=== PATIENT | male | born 1965 | race Two or more races ===

== ENCOUNTER 2020-01-15 17:50 | Emergency (ER) | payer MEDICAID ==
[~2020-01-15] VITALS: Ht 175.3 cm; Wt 90.7 kg
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
--- NOTE | 2020-01-15 18:00 | NUR ---
SEEN AND EXAMINED BY .
--- NOTE | 2020-01-15 20:50 | NUR ---
Patient is resting comfortably in bed. Easily aroused. VSS.
--- NOTE | 2020-01-15 21:19 | NUR ---
Patient is resting comfortably in bed with eyes closed. Easily aroused. VSS
--- NOTE | 2020-01-16 00:24 | NUR ---
PT PROVIDED WITH WATER AND BLANETS.
--- NOTE | 2020-01-16 02:40 | NUR ---
[employer] AT BEDSIDE. STATED PT WAS MISSING.
--- NOTE | 2020-01-16 02:41 | NUR ---
Patient discharged to home in stable condition. Written and verbal after care instructions given. Patient verbalizes understanding of instruction. Pt ambulated with steady gait. Homeless waiver signed.
[2020-01-16 02:42] VITALS: BP 118/75
== END 2020-01-16 02:42 | disposition home or self-care (01) ==
LOC: ER 17:57
DX: F10.129 Alcohol abuse with intoxication, unspecified (principal); R41.82 Altered mental status, unspecified; Y90.9 Presence of alcohol in blood, level not specified; Z59.0 Homelessness

== ENCOUNTER 2020-01-16 08:29 | Emergency (ER) | payer MEDICAID ==
[~2020-01-16] VITALS: Ht 175.3 cm; Wt 81.6 kg
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
--- NOTE | 2020-01-16 08:42 | NUR ---
"Shakes-Dont feel Good. Seen for alcohol intoxication yesterday", to ER bed 12, hooked to monitor, Dr Leon at bedside
[2020-01-16] MEDS ORDERED: LORAZEPAM 1 MG TABLET ONE (08:43)
[2020-01-16] MEDS ORDERED: ONDANSETRON 4 MG TAB.RAPDIS ONE (08:43)
[2020-01-16] MEDS: LORAZEPAM 1 MG TABLET PO ONE (08:46)
[2020-01-16] MEDS: ONDANSETRON 4 MG TAB.RAPDIS SL ONE (08:46)
[2020-01-16] MEDS ORDERED: FOLIC ACID 1 MG TABLET ONE (09:24)
[2020-01-16] MEDS ORDERED: THIAMINE HCL 100 MG TABLET ONE (09:25)
[2020-01-16] MEDS: THIAMINE HCL 100 MG TABLET PO ONE (09:29)
[2020-01-16] MEDS: IV NS 0.9% 1,000 ML IV ONE (09:29)
[2020-01-16] MEDS: FOLIC ACID 1 MG TABLET PO ONE (09:29)
[2020-01-16 09:36] LABS: BASOPHILS % (AUTO) 0.5 % (0.0-2.0); EOSINOPHILS % (AUTO) 0.9 % (0.0-6.0); HEMATOCRIT 42 % (39-51); HEMOGLOBIN 14.3 g/dL (13.5-17.5); LYMPHOCYTES # (AUTO) 1.6 /CMM (0.8-4.8); LYMPHOCYTES % (AUTO) 26.3 % (20.0-44.0); MEAN CORPUSCULAR HGB CONC 34 g/dl (31.0-36.0); MEAN CORPUSCULAR VOLUME 92 fL (80-96); MONOCYTES # (AUTO) 0.5 /CMM (0.1-1.30); MONOCYTES % (AUTO) 8.1 % (2.0-12.0); NEUTROPHILS % (AUTO) 64.2 % (43.0-81.0); PLATELET COUNT (AUTO) 203 /CMM (150-450); RED BLOOD CELL COUNT(AUTO) 4.59 MIL/uL (4.5-6.0); WHITE BLOOD COUNT (AUTO) 6.2 K/uL (4.3-11.0)
[2020-01-16 09:46] LABS: CALCIUM, SERUM 9.6 mg/dL (8.5-10.1); CARBON DIOXIDE 25 mmol/L (21-32); CHLORIDE 103 mmol/L (98-107); CREATININE 0.9 mg/dL (0.6-1.3); GLUCOSE 106 mg/dL (74-106); POTASSIUM 4.1 mmol/L (3.5-5.1); SODIUM SERUM 139 mmol/L (136-145); UREA NITROGEN, BLOOD 16 mg/dL (7-18)
[2020-01-16 09:47] LABS: ALCOHOL, BLOOD < 3 mg/dL (0-0)
[2020-01-16] MEDS: LEVETIRACETAM (500MG) 1,000 MG in IV NS 0.9% 100 ML IV STA (09:55)
--- NOTE | 2020-01-16 11:33 | NUR ---
NIK,PUBLIC AFFAIRS DIRECTOR FROM [facility],[phone] x [phone]
--- NOTE | 2020-01-16 12:00 | NUR ---
PT AMBULATED TO BATHROOM WITH ASSIST ON STEADY GAIT. PT IS AAOX4. NOT IN RESP DISTRESS.
--- NOTE | 2020-01-16 12:45 | NUR ---
INTERIOR DESIGN INSTRUCTOR contacted skilled nursing case manager Marie at [phone]. Per Marie, she requested for INTERIOR DESIGN INSTRUCTOR to speak with pt's therapist Bj Garcia Per Bj, pt has had multiple suicidal attempts in the past. Pt has a brain injury and has short term memory loss, per Bj. Pt is currently denying suicidal ideations. Per Bj, pt is prone to seizures. Pt is an alcoholic. INTERIOR DESIGN INSTRUCTOR informed Bj she will have supervisor irrigation Dr. Maty Mcdonald speak with him regarding his concerns.
--- NOTE | 2020-01-16 13:20 | NUR ---
RODRIGO received a call back from Marie, rehabilitation case coordinator informing RODRIGO, that Dr. Mcdonald and therapist Bj spoke and pt is cleared to be discharged back to [facility] in [place]. Pt has all his medications and belongings at the alf. Per Marie, pt's girlfriend Radha is willing to provide transportation to the alf via LYFT if she can first speak with the pt. WARE CARRIER attempted to contact [facility], however they was no answer. Per Marie, the alf informed her they will hold the bed for the pt since he was in the hospital.
--- NOTE | 2020-01-16 13:43 | NUR ---
PT TALKING WITH HIS GIRLFRIEND OVER THE PHONE FOR DISCHARGE BACK TO HIS HALFWAY
--- NOTE | 2020-01-16 13:57 | NUR ---
PT WAS PICKED UP BY LIFT WHICH WAS ARRANGED BY THE GIRLFRIEND TO BRING HIM BACK TO HIS LONG TERM. PT AMBULATED OUT OF THE ER ESCORTED BY THE EMT TO THE CAR. NAD NOTED.
[2020-01-16 14:08] VITALS: BP 135/75
== END 2020-01-16 14:09 | disposition home or self-care (01) ==
LOC: ER 08:30
DX: F10.239 Alcohol dependence with withdrawal, unspecified (principal); R25.1 Tremor, unspecified; F41.9 Anxiety disorder, unspecified; R11.0 Nausea; G40.909 Epilepsy, unspecified, not intractable, without status epilepticus; Y90.0 Blood alcohol level of less than 20 mg/100 ml
CPT/HCPCS: 36415; 71045; 80048; 80307; 85025; 93005; 96365; 99285; J1953; J7030 ×2; Q0162; G0480

== ENCOUNTER 2025-06-16 10:18 | Emergency (ER) | payer MEDICAID ==
[~2025-06-16] VITALS: Ht 170.2 cm; Wt 72.6 kg
[2025-06-16] MEDS ORDERED: DIVALPROEX SODIUM 250 MG TABLET.DR PO ONE (10:40)
[2025-06-16] MEDS: DIVALPROEX SODIUM 250 MG TABLET.DR PO ONE (10:45)
[2025-06-16 10:52] VITALS: BP 160/87; TEMP 98.6; O2SAT 98
== END 2025-06-16 10:52 | disposition home or self-care (01) ==
LOC: ER 10:25
DX: R56.9 Unspecified convulsions (principal); Z76.0 Encounter for issue of repeat prescription